=== PATIENT | female | born 1975 | race Caucasian/White ===

== ENCOUNTER 2016-10-12 09:27 | Emergency (ER) | payer OTHER ==
[~2016-10-12] VITALS: Ht 188 cm; Wt 107.0 kg
[~2016-10-12 09:27] MED LIST: FIORTAB4 PO; Z.0.NO CURRENT MEDS
[2016-10-12 09:29] VITALS: BP 141/67; PULSE 74; RESP 17; TEMP 97.8; O2SAT 99
[2016-10-12] MEDS ORDERED: MAGNESIUM CITRATE SOLN 300 ML BTL PO ONE (10:00)
[2016-10-12] MEDS ORDERED: LACTULOSE SYRUP 20 GM/30 ML CUP PO ONE (10:00)
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
== END 2016-10-12 12:55 | disposition home or self-care (01) ==
LOC: NEPD 09:27
DX: K59.00 Constipation, unspecified (principal)
CPT/HCPCS: 99283

== ENCOUNTER → 2016-12-20 | Outpatient (CLI) | payer OTHER ==
[2016-12-20 08:33] LABS: BLOOD GAS BASE EXCESS -1.8 mmol/L (-2-2); BLOOD GAS CARBOXYHEMOGLOBIN 1.1 % (0-4); BLOOD GAS HCO3 22 mmol/L (22-26); BLOOD GAS METHEMOGLOBIN 1.3 % (0-2); BLOOD GAS O2 HGB SATURATION 96 % (90-100); BLOOD GAS OXYGEN CONTENT 17.7 Vol % (12.0-20.0); BLOOD GAS PCO2 36 mmHg (38-42); BLOOD GAS PO2 118 mmHg (61-120); CRITICAL VALUE NO; DRAW SITE RT RADIAL; FIO2 21 %; NUMBER OF ARTERIAL PUNCTURES 1; STAT NO; TEMP CORR TO 98.6; ULNAR PULSE PRESENT
--- NOTE | 2016-12-24 08:38 | RSPPFT ---
DATE OF PROCEDURE: 12/20/16 COMMENTS: Spirometry shows FVC of 4.8 at 109% of predicted, FEV1 of 3.6 at 100%, FEV1/FVC ratio is normal. Flow is normal at FEF 25, FEF 50, FEF 75 and FEF 25-75. There is no response after bronchodilator treatment. Lung volumes show residual volume is normal. TLC is normal. Diffusion capacity is normal. Flow volume loop indicates a normal pattern. Room air arterial blood gases show pH 7.41, PCO2 of 36, PO2 of 118, BiCarb of 22. 6-minute walk test shows no de-saturation. IMPRESSION: 1. Normal spirometry. 2. No response to bronchodilator treatment. 3. Normal lung volumes. 4. Normal diffusion capacity. 5. Blood gases show normal oxygenation. 6. 6-minute walk test shows no de-saturation.
== END ==
LOC: HRSP 07:55
PROVIDERS: ATTEND Specialist
DX: R06.00 Dyspnea, unspecified (principal)
CPT/HCPCS: 36600; 82805; 94060; 94620; 94726; 94729